=== PATIENT | female | born 1985 | race Caucasian/White ===

== ENCOUNTER 2022-02-21 15:58 | Emergency (ER) | payer BC ==
[2022-02-21] MEDS ORDERED: Boostrix 0.5 ML (Tdap) VIAL (>/=7 yrs of age) ONE (19:17)
== END 2022-02-21 19:35 | disposition home or self-care (01) ==
LOC: CSHERS 15:58
DX: L03.115 Cellulitis of right lower limb (principal)
CPT/HCPCS: 90471; 90715